=== PATIENT | female | born 1990 | race African-American/Black ===

== ENCOUNTER 2016-11-09 04:47 | Emergency (ER) | payer OTHER ==
[~2016-11-09] VITALS: Ht 165.1 cm; Wt 73.0 kg
[2016-11-09] MEDS ORDERED: NEXP1IMP SC (05:09)
[2016-11-09 06:06] LABS: CALCIUM OXALATE CRYSTALS SMALL
[2016-11-09] MEDS ORDERED: BACTRIM 160MG/800MG DS TAB PO ONE (06:15)
[2016-11-09] MEDS ORDERED: BACT800T5 PO (06:20)
[2016-11-09 06:25] VITALS: BP 115/77
== END 2016-11-09 06:35 | disposition home or self-care (01) ==
LOC: M ED 04:47
DX: N39.0 Urinary tract infection, site not specified (principal); Z87.891 Personal history of nicotine dependence; Z79.3 Long term (current) use of hormonal contraceptives

== ENCOUNTER 2016-12-01 12:59 | Emergency (ER) | payer OTHER ==
[~2016-12-01] VITALS: Ht 167.6 cm; Wt 77.6 kg
[~2016-12-01 12:59] MED LIST: BACT800T5 PO; NEXP1IMP SC
[2016-12-01] MEDS ORDERED: IBUPROFEN 800 MG TAB PO ONE (15:00)
[2016-12-01] MEDS ORDERED: IBUP80TA PO (16:26)
--- NOTE | 2016-12-01 16:36 | REP ---
LEFT UPPER EXTREMITY DOPPLER VENOUS ULTRASOUND: 12/01/2016. Clinical history: Left upper extremity pain. Evaluate for DVT. Technique: Compression ultrasound with duplex Doppler interrogation of the subclavian and jugular veins along with axillary, brachial, cephalic and basilic vein. Srivastava scale, color, duplex Doppler and augmentation techniques in that left upper extremity. Findings: The jugular and left subclavian veins show color filling their volume without thrombus. They cannot be compressed in this region. The axillary and brachial veins show adequate flow and no thrombus. Basilic and cephalic veins of the superficial system were unremarkable. Respiratory variation and augmented flow at all levels. Impression: 1. There is no Doppler venous ultrasound evidence of DVT in the left upper extremity. Signed by Gene Marshall MD 12/01/2016 09:24 P
[2016-12-01 16:58] VITALS: BP 107/78
--- NOTE | 2016-12-01 18:42 | ECGEPIP ---
Stationary ECG Study [facility] - ED Test Date: 2016-12-01 Pat Name: POOJA CUADRA Department: Room: - Gender: F Patient Transporter: : 1990 Requested By: AGUILAR Dick PA-C Order Number: [id number] Reading MD: James Dietrich Measurements Intervals [place] Rate: 57 P: -16 [place]: 205 QRS: 50 QRSD: 78 T: 29 QT: 399 QTc: 390 Interpretive Statements SINUS BRADYCARDIA BENIGN EARLY REPOLARIZATION NO PRIORS Electronically Signed On 12-01-2016 18:41:54 EDT by James Dietrich
== END 2016-12-01 16:59 | disposition home or self-care (01) ==
LOC: M ED 12:59
DX: N64.4 Mastodynia (principal); Z87.891 Personal history of nicotine dependence; Z82.49 Family history of ischemic heart disease and other diseases of the circulatory system; Z83.49 Family history of other endocrine, nutritional and metabolic diseases; Z82.3 Family history of stroke; Z79.3 Long term (current) use of hormonal contraceptives

== ENCOUNTER 2017-01-12 17:01 | Emergency (ER) | payer OTHER ==
[~2017-01-12] VITALS: Ht 167.6 cm; Wt 73.2 kg
[~2017-01-12 17:01] MED LIST changes: +IBUP80TA PO
[2017-01-12] MEDS ORDERED: CYCL10TA PO (17:08)
[2017-01-12] MEDS ORDERED: KETOROLAC 60 MG/2 ML VIAL (J1885) IM ONE (20:15)
--- NOTE | 2017-01-12 21:50 | REPUSA ---
MRI of the right hip Clinical statement: Pain. Technique: Multiecho multiplanar MRI images of the right hip were obtained without administration of contrast. No comparison is available. Correlation is made with x-ray of 11/28/2015. Findings: The osseous structures demonstrate normal heterogeneous bone marrow signal. No evidence of fracture or masses are appreciated. The hip joint and sacroiliac joints are well maintained bilateral ly. The articular cartilage appears unremarkable. The labrum appears grossly intact on this non-arthr ogram study. There is no evidence of any joint effusions. There is a simple left ovarian cyst. The u terus and right ovary appear unremarkable. The intrapelvic structures are otherwise unremarkable. The urinary bladder is within normal limits. There is no evidence of pelvic lymphadenopathy or ascites. Both the deep and superficial soft tissues demonstrate normal signal. Impression: 1. Unremarkable MRI examination of the right hip and pelvis. No osseous or labral abnormalities demon strated. However, if there is continued concern about the labrum, MR arthrogram would be recommended. 2. Simple left ovarian cyst.
[2017-01-12] MEDS ORDERED: ACET30TAB PO (21:59)
[2017-01-12 22:34] VITALS: BP 115/73
[2017-03-12] MEDS ORDERED: CYMB1CAP4 PO (09:06)
[2017-03-12] MEDS ORDERED: VITA1CAP40 PO (09:06)
[2017-03-12] MEDS ORDERED: IBUP-1022 PO (10:29)
[2017-03-12] MEDS ORDERED: ZITHTAB PO (10:32)
== END 2017-01-12 22:35 | disposition home or self-care (01) ==
LOC: M ED 17:01
DX: M25.551 Pain in right hip (principal); N83.202 Unspecified ovarian cyst, left side; Z87.39 Personal history of other diseases of the musculoskeletal system and connective tissue
CPT/HCPCS: 73721; 96372; 99282; J1885

== ENCOUNTER 2017-04-28 20:43 | Emergency (ER) | payer OTHER ==
[2017-04-29 01:35] LABS: BASO % 0.5 % (0.0-1.0); EOS # 0.1 10^3/uL (0.0-0.50); EOS % 1.3 % (0.0-3.0); IMMATURE GRANULOCYTE % 0.2 % (0-0); LYMPH # 2.8 10^3/uL (1.5-6.5); LYMPH % 32.6 % (24.0-44.0); MEAN CORPUSCULAR HEMOGLOBIN 25.7 pg (27.0-33.0); MEAN CORPUSCULAR HGB CONC 31.8 g/dl (32.0-36.5); MEAN CORPUSCULAR VOLUME 80.7 fl (80.0-96.0); MONO # 0.6 10^3/uL (0.0-0.8); MONO % 6.6 % (0.0-5.0); NEUTROPHILS # 5.1 10^3/uL (1.8-7.7); NEUTROPHILS % 58.8 % (36.0-66.0); PLATELET COUNT, AUTOMATED 290 10^3/uL (150-450); RED CELL DISTRIBUTION WIDTH 13.8 % (11.5-14.5); WHITE BLOOD COUNT 8.7 10^3/uL (4.0-10.0)
[2017-04-29 02:10] LABS: HCG, SERUM QUANTITATIVE 110 MIU/ML
== END 2017-04-29 03:09 | disposition home or self-care (01) ==
LOC: M ED 04-29 03:09
DX: O20.0 Threatened abortion (principal); O99.89 Other specified diseases and conditions complicating pregnancy, childbirth and the puerperium; R93.8 Abnormal findings on diagnostic imaging of other specified body structures; Z3A.01 Less than 8 weeks gestation of pregnancy; Z79.899 Other long term (current) drug therapy; Z87.891 Personal history of nicotine dependence; Z98.890 Other specified postprocedural states
CPT/HCPCS: 76801

== ENCOUNTER 2017-06-23 07:24 | Day surgery (SDC) | payer OTHER ==
[~2017-06-23 07:24] MED LIST changes: -BACT800T5 PO; -IBUP80TA PO; +KETOROLAC 60 MG/2 ML VIAL (J1885) As Ordered; +LIDOCAINE 2% INJ 100 MG/5 ML SDV (FOR ANES.) As Ordered; -NEXP1IMP SC; +ONDANSETRON 4MG/2ML VIAL (J2405) As Ordered; +PROPOFOL 200 MG/20 ML VIAL As Ordered; +ROCURONIUM BROMIDE 50 MG/5 ML VIAL As Ordered; +dexameTHASONE 4 MG/ML 1ML VIAL (J1100) As Ordered
[2017-06-23] MEDS ORDERED: LIDOCAINE 1% MDV 20ML VIAL SQ (07:30)
[2017-06-23 08:07] LABS: HEMATOCRIT 39.1 % (36.0-47.0); HEMOGLOBIN 12.2 g/dl (12.0-16.0); MEAN CORPUSCULAR HEMOGLOBIN 25.6 pg (27.0-33.0); MEAN CORPUSCULAR HGB CONC 31.2 g/dl (32.0-36.5); PLATELET COUNT, AUTOMATED 263 10^3/uL (150-450); RED BLOOD COUNT 4.77 10^6/uL (4.00-5.40); RED CELL DISTRIBUTION WIDTH 13.3 % (11.5-14.5)
[2017-06-23 08:28] LABS: ANION GAP 6 MEQ/L (8-16); BLOOD UREA NITROGEN 13 MG/DL (7-18); CALCIUM LEVEL 8.6 MG/DL (8.5-10.1); CARBON DIOXIDE LEVEL 26 MEQ/L (21-32); CHLORIDE LEVEL 108 MEQ/L (98-107); CREATININE FOR GFR 0.71 MG/DL (0.55-1.30); GLOMERULAR FILTRATION RATE > 60.0 (>60); GLUCOSE, FASTING 85 MG/DL (70-100); HCG, SERUM QUANTITATIVE < 1.0 MIU/ML; POTASSIUM SERUM 4.4 MEQ/L (3.5-5.1); SODIUM LEVEL 140 MEQ/L (136-145)
[2017-06-23] MEDS: LR 1,000 ML IV (08:45)
[2017-06-23] MEDS: ACETAMINOPHEN 650 MG SUPP PR (09:51)
[2017-06-23] MEDS: BUPIVACAINE HCL 0.25% 10 ML VIAL As Ordered (10:01)
[2017-06-23] MEDS: METHYLENE BLUE 0.5% (5MG/ML) 10 ML AMP (PROVAYBLUE)(Q9968 PER 1MG) As Ordered (10:02)
[2017-06-23] MEDS ORDERED: fentaNYL 250 MCG/5 ML INJECTION (J3010) As Ordered (10:31)
[2017-06-23] MEDS ORDERED: MIDAZOLAM INJ 2 MG/2 ML VIAL (J2250) As Ordered (10:31)
[2017-06-23] MEDS ORDERED: fentaNYL 100 MCG/2 ML INJECTION (J3010) IV (10:45)
[2017-06-23] MEDS ORDERED: ONDANSETRON 4MG/2ML VIAL (J2405) IV (10:45)
[2017-06-23] MEDS ORDERED: LR 1,000 ML IV (10:45)
[2017-06-23] MEDS ORDERED: KETOROLAC 30 MG/ML VIAL (J1885) IV (12:00)
== END 2017-06-23 12:36 | disposition home or self-care (01) ==
LOC: M SDC 07:24
DX: N83.11 Corpus luteum cyst of right ovary (principal); N73.6 Female pelvic peritoneal adhesions (postinfective); S76.091 Other specified injury of muscle, fascia and tendon of right hip; R06.83 Snoring; Z87.59 Personal history of other complications of pregnancy, childbirth and the puerperium
CPT/HCPCS: 49320

== ENCOUNTER 2017-08-16 20:36 | Emergency (ER) | payer OTHER | END 2017-08-16 23:56 | disposition home or self-care (01) | LOC: M ED 20:36 | DX: F07.81 Postconcussional syndrome (principal); R55 Syncope and collapse; S00.03XA Contusion of scalp, initial encounter; W00.0XXA Fall on same level due to ice and snow, initial encounter; Y92.018 Other place in single-family (private) house as the place of occurrence of the external cause | CPT/HCPCS: 70450 ==

== ENCOUNTER 2017-10-16 16:42 | Emergency (ER) | payer OTHER | END 2017-10-16 17:38 | disposition home or self-care (01) | LOC: M ED 16:42 | DX: S63.621A Sprain of interphalangeal joint of right thumb, initial encounter (principal); X58.XXXA Exposure to other specified factors, initial encounter; Y92.89 Other specified places as the place of occurrence of the external cause; Z79.899 Other long term (current) drug therapy | CPT/HCPCS: 73130 ==

== ENCOUNTER 2017-11-09 17:51 | Emergency (ER) | payer OTHER ==
[2017-11-09 18:31] LABS: KETONE, URINE AUTO RFX NEGATIVE (NEGATIVE); LEUKOCYTE ESTERASE UR AUTO RFX NEGATIVE (NEGATIVE); MUCUS, URINE RFX SMALL (NEGATIVE); NITRITE, URINE AUTO RFX NEGATIVE (NEGATIVE); RBC, URINE AUTO RFX 1 /HPF (0-3); SPECIFIC GRAVITY UR AUTO RFX 1.017 (1.002-1.035); SQUAM EPITHELIAL CELL UR AURFX 1 /HPF (0-6); WBC, URINE AUTO RFX 1 /HPF (0-3)
[2017-11-09 20:09] LABS: CONTROL LINE UCG INT CTR LINE PRESENT; URINE PREG TEST POSITIVE (NEGATIVE)
[2017-11-09 21:12] LABS: HCG, SERUM QUANTITATIVE 14393 MIU/ML
== END 2017-11-09 22:17 | disposition home or self-care (01) ==
LOC: M ED 17:51
DX: O26.891 Other specified pregnancy related conditions, first trimester (principal); Z3A.01 Less than 8 weeks gestation of pregnancy; O34.81 Maternal care for other abnormalities of pelvic organs, first trimester; Z79.899 Other long term (current) drug therapy
CPT/HCPCS: 76801

== ENCOUNTER 2018-02-07 14:53 | Emergency (ER) | payer OTHER ==
[2018-02-07 15:40] LABS: BASO % 0.2 % (0.0-1.0); EOS # 0.1 10^3/uL (0.0-0.50); EOS % 1.5 % (0.0-3.0); HEMOGLOBIN 10.7 g/dl (12.0-15.5); IMMATURE GRANULOCYTE % 0.9 % (0-3.0); LYMPH # 1.9 10^3/uL (1.5-6.5); LYMPH % 21.6 % (24.0-44.0); MEAN CORPUSCULAR HEMOGLOBIN 26.1 pg (27.0-33.0); MEAN CORPUSCULAR HGB CONC 31.5 g/dl (32.0-36.5); MEAN CORPUSCULAR VOLUME 82.9 fl (80.0-96.0); MONO # 0.5 10^3/uL (0.0-0.8); NEUTROPHILS # 6.2 10^3/uL (1.8-7.7); NEUTROPHILS % 69.8 % (36.0-66.0); PLATELET COUNT, AUTOMATED 233 10^3/uL (150-450); RED CELL DISTRIBUTION WIDTH 14.5 % (11.5-14.5); WHITE BLOOD COUNT 8.9 10^3/uL (4.0-10.0)
[2018-02-07 15:51] LABS: KETONE, URINE AUTO RFX NEGATIVE (NEGATIVE); NITRITE, URINE AUTO RFX NEGATIVE (NEGATIVE); RBC, URINE AUTO RFX 3 /HPF (0-3); SPECIFIC GRAVITY UR AUTO RFX 1.002 (1.002-1.035); SQUAM EPITHELIAL CELL UR AURFX 11 /HPF (0-6); WBC, URINE AUTO RFX 5 /HPF (0-3)
[2018-02-07 15:52] LABS: LEUKOCYTE ESTERASE UR AUTO RFX 3+ (NEGATIVE)
[2018-02-07 16:23] LABS: ANION GAP 9 MEQ/L (8-16); BLOOD UREA NITROGEN 5 MG/DL (7-18); CALCIUM LEVEL 8.1 MG/DL (8.5-10.1); CARBON DIOXIDE LEVEL 22 MEQ/L (21-32); CHLORIDE LEVEL 110 MEQ/L (98-107); CREATININE FOR GFR 0.52 MG/DL (0.55-1.30); GLOMERULAR FILTRATION RATE > 60.0 (>60); GLUCOSE, FASTING 92 MG/DL (70-100); HCG, SERUM QUANTITATIVE 3914 MIU/ML; POTASSIUM SERUM 3.8 MEQ/L (3.5-5.1); SODIUM LEVEL 141 MEQ/L (136-145)
[2018-02-07] MEDS: NITROFURANTOIN (MACROBID) 100 MG CAP PO (16:56)
== END 2018-02-07 17:01 | disposition home or self-care (01) ==
LOC: M ED 14:53
DX: O23.12 Infections of bladder in pregnancy, second trimester (principal); Z3A.19 19 weeks gestation of pregnancy; Z87.42 Personal history of other diseases of the female genital tract
CPT/HCPCS: 76811

== ENCOUNTER 2018-03-11 13:10 | Outpatient (CLI) | payer OTHER ==
[2018-03-11 14:27] LABS: HEMATOCRIT 30.4 % (36.0-47.0); HEMOGLOBIN 9.6 g/dl (12.0-15.5); MEAN CORPUSCULAR HEMOGLOBIN 26.7 pg (27.0-33.0); MEAN CORPUSCULAR HGB CONC 31.6 g/dl (32.0-36.5); MEAN CORPUSCULAR VOLUME 84.4 fl (80.0-96.0); PLATELET COUNT, AUTOMATED 202 10^3/uL (150-450); RED CELL DISTRIBUTION WIDTH 14.6 % (11.5-14.5); WHITE BLOOD COUNT 9.8 10^3/uL (4.0-10.0)
[2018-03-11 15:03] LABS: FIBRINOGEN 433 MG/DL (221-452)
== END 2018-03-11 15:51 | disposition home or self-care (01) ==
LOC: M LDO 13:10
DX: Z04.3 Encounter for examination and observation following other accident (principal); Z3A.24 24 weeks gestation of pregnancy
CPT/HCPCS: 76815

== ENCOUNTER → 2018-11-05 | Outpatient (REF) | payer OTHER ==
[~2018-11-05] MED LIST changes: +ACET-716 PO; +BACT800T5 PO; +CYCL10TA PO; +CYMB1CAP4 PO; +IBUP-1022 PO; +IBUP80TA PO; -KETOROLAC 60 MG/2 ML VIAL (J1885) As Ordered; -LIDOCAINE 2% INJ 100 MG/5 ML SDV (FOR ANES.) As Ordered; +MACR100C43 PO; +NEXP1IMP SC; +NITR25SU3 PO; -ONDANSETRON 4MG/2ML VIAL (J2405) As Ordered; +PREN1TAB14 PO; -PROPOFOL 200 MG/20 ML VIAL As Ordered; -ROCURONIUM BROMIDE 50 MG/5 ML VIAL As Ordered; +VITA50005 PO; +ZITHTAB PO; -dexameTHASONE 4 MG/ML 1ML VIAL (J1100) As Ordered
[2018-11-05 22:22] LABS: CHLAMYDIA DNA AMPLIFICATION NEGATIVE (NEGATIVE); GC DNA AMPLIFICATION NEGATIVE (NEGATIVE)
== END ==
LOC: M SFHCLERA 15:52
PROVIDERS: ATTEND Nurse Practitioner Family
DX: R39.9 Unspecified symptoms and signs involving the genitourinary system (principal)
CPT/HCPCS: 81002; 81025; 87088; 87186; 87661; G0463

== ENCOUNTER → 2018-12-19 | Outpatient (REF) | payer OTHER ==
[2018-12-19 21:04] LABS: CHLAMYDIA DNA AMPLIFICATION NEGATIVE (NEGATIVE); GC DNA AMPLIFICATION NEGATIVE (NEGATIVE)
== END ==
LOC: M SFHCLERA 13:20
PROVIDERS: ATTEND Nurse Practitioner Family
DX: R10.2 Pelvic and perineal pain (principal)